=== PATIENT | female | born 2005 | race Caucasian/White ===

== ENCOUNTER 2023-11-20 15:55 | Emergency (ER) | payer OTHER, SELFPAY ==
[2023-11-20 16:00] VITALS: BP 120/72
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
[2023-11-20 18:25] LABS: HCG, Urine Qualitative Screen Negative
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
== END 2023-11-20 20:29 | disposition home or self-care (01) ==
LOC: EMR 15:55
PROVIDERS: Physician Assistant; EMERGENCY PHYSICIAN Emergency Medicine; FAMILY PHYSICIAN Family Medicine
DX: S09.90XA Unspecified injury of head, initial encounter (principal); S00.12XA Contusion of left eyelid and periocular area, initial encounter; S40.012A Contusion of left shoulder, initial encounter; G44.309 Post-traumatic headache, unspecified, not intractable; M25.512 Pain in left shoulder; M54.2 Cervicalgia; R11.10 Vomiting, unspecified; Y04.2XXA Assault by strike against or bumped into by another person, initial encounter; Y92.89 Other specified places as the place of occurrence of the external cause; Y07.9 Unspecified perpetrator of maltreatment and neglect; J45.909 Unspecified asthma, uncomplicated; N83.209 Unspecified ovarian cyst, unspecified side
CPT/HCPCS: 99284; 70450; 72125; 73030; 81025